=== PATIENT | male | born 1995 | race Caucasian/White ===

== ENCOUNTER 2022-11-02 01:15 | Emergency (ER) | payer OTHER ==
[2022-11-02 01:21] VITALS: BMI 19.7
[2022-11-02] MEDS ORDERED: LIDOCAINE 2.5%/PRILOCAINE 2.5% (5 Gram/TUBE) TP ONE (02:02)
[2022-11-02] MEDS ORDERED: LIDOCAINE 2.5%/PRILOCAINE 2.5% 30 GRAM TUBE TP ONE (02:12)
[2022-11-02] MEDS ORDERED: DIPHTH,PERTUSS(ACELL),TET 0.5 ML DISP.SYRIN IM ONE ×2 (02:20→06:16)
[2022-11-02] MEDS ORDERED: OLANZapine 7.5 MG TABLET PO ONE (02:36)
[2022-11-02 02:51] LABS: BASO % 0.2 % (0-2.0); EOS % 0.3 % (0-4.5); HEMATOCRIT 45.2 % (35.4-49); HEMOGLOBIN 15.7 GM/dL (11.7-16.9); LYMPH % 12.8 % (8-40); MCHC 34.7 g/dl (32.0-35.9); MEAN CELL VOLUME 86.3 fl (80-96); MEAN PLT VOLUME 8.3 fl (7.5-11.1); NEUT % 78.7 % (42.8-82.8); PLATELET COUNT 251 10^3/uL (134-434); RBC 5.24 M/mm3 (4.00-5.60); RDW 13.9 % (11.9-15.9); WHITE BLOOD COUNT 10.2 K/mm3 (4.0-10.0)
[2022-11-02] MEDS ORDERED: OLANZapine 10 MG TABLET PO ONE (03:00)
[2022-11-02 03:05] LABS: CHLORIDE 103 mmol/L (98-107); SODIUM 138 mmol/L (136-145)
[2022-11-02 03:07] LABS: ANION GAP 5 MMOL/L (8-16); BLOOD UREA NITROGEN 11.2 mg/dL (7-18); CALCIUM 9.4 mg/dL (8.5-10.1); CO2 30 mmol/L (21-32); GLUCOSE,RANDOM 93 mg/dL (74-106); MAGNESIUM 2.1 mg/dL (1.8-2.4)
[2022-11-02 03:08] LABS: ALBUMIN 4.7 g/dl (3.4-5.0)
[2022-11-02 03:10] LABS: CREATININE 0.9 mg/dL (0.55-1.3); SGOT/AST 13 U/L (15-37); SGPT/ALT 19 U/L (13-61)
[2022-11-02 03:12] LABS: BILIRUBIN,TOTAL 1.4 mg/dL (0.2-1); TOT PROT 7.8 g/dl (6.4-8.2)
[2022-11-02 03:13] LABS: ALK PHOS 73 U/L (45-117)
[2022-11-02 03:29] LABS: INR 1.13 (0.83-1.09); PROTHROMBIN TIME (PATIENT) 13.1 SEC (9.7-13.0)
[2022-11-02 03:32] LABS: ACTIVATED PTT 38.1 SECONDS (25.2-36.5)
[2022-11-02] MEDS ORDERED: ALPRAZolam 1 MG TABLET PO PRN (04:21)
[2022-11-02] MEDS ORDERED: LORazepam 2 MG/ML SDV VIAL IVPUSH ONE ×2 (04:40→16:58)
[2022-11-02 06:38] LABS: METHADONE, UR NEGATIVE (NEGATIVE); OPIATES, URI NEGATIVE (NEGATIVE); PHENCYCLIDINE,URINE NEGATIVE (NEGATIVE); URINE BARBITURATES NEGATIVE (NEGATIVE); URINE BENZODIAZEPINES NEGATIVE (NEGATIVE)
[2022-11-02 06:39] LABS: COCAINE, UR NEGATIVE (NEGATIVE)
[2022-11-02 06:57] LABS: URINE AMPHETAMINES NEGATIVE (NEGATIVE)
[2022-11-02] MEDS ORDERED: SODIUM CHLORIDE 1,000 ML IV ONE (16:10)
[2022-11-02 19:54] VITALS: RESP 18
[2022-11-02 22:57] VITALS: TEMP 98.6
[2022-11-03 17:26] VITALS: BP 153/112; PULSE 106
== END 2022-11-03 17:00 | disposition short-term general hospital (02) ==
LOC: JER 01:15
PROC: 0HQFXZZ Repair Right Hand Skin, External Approach (ICD-10-PCS; principal; 2022-11-02)
PROC: 3E0234Z Introduction of Serum, Toxoid and Vaccine into Muscle, Percutaneous Approach (ICD-10-PCS; 2022-11-02)
PROC: 3E033NZ Introduction of Analgesics, Hypnotics, Sedatives into Peripheral Vein, Percutaneous Approach (ICD-10-PCS; 2022-11-02)
PROC: 3E033NZ Introduction of Analgesics, Hypnotics, Sedatives into Peripheral Vein, Percutaneous Approach (ICD-10-PCS; 2022-11-02)
PROC: 3E0337Z Introduction of Electrolytic and Water Balance Substance into Peripheral Vein, Percutaneous Approach (ICD-10-PCS; 2022-11-02)
DX: S61.411A Laceration without foreign body of right hand, initial encounter (principal); F25.0 Schizoaffective disorder, bipolar type; R45.851 Suicidal ideations
CPT/HCPCS: 0241U-QW; 12001-25; 36415; 80053; 80178; 80307; 83735; 84443; 85025; 85610; 85730; 86850; 86900; 86901; 90471; 90715; 93005; 93010; 96360; 96375; 96376; 99285-25